=== PATIENT | male | born 1975 | race Caucasian/White ===

== ENCOUNTER 2017-11-21 06:11 | Observation (INO) ==
[2017-11-21] MEDS ORDERED: Chlorhexidine Gluconate 2% 1 Pack (2 Cloths) TOPICAL SCH (06:45)
[2017-11-21] MEDS ORDERED: Metoprolol Tartrate 25 MG Tablet PO SCH (06:45)
[2017-11-21] MEDS ORDERED: Vancomycin Inj 1 GM/200 ML PIGGYBACK IV.SIG ONE (06:53)
[2017-11-21] MEDS ORDERED: Bupivacaine/Epinephrine 0.5% Inj 50 ML Vial ONE (06:53)
[2017-11-21] MEDS ORDERED: Thrombin Topical Soln 5,000 UNIT Vial TOPICAL ONE ×2 (06:53→10:02)
[2017-11-21] MEDS ORDERED: Gelatin Size 100 Topical Foam ONE (06:53)
[2017-11-21] MEDS ORDERED: Vancomycin Inj 1 GM/200 ML PIGGYBACK IV.SIG PRN (06:58)
[2017-11-21] MEDS ORDERED: Propofol Inj 500 MG/50 ML Vial ONE (06:58)
[2017-11-21] MEDS ORDERED: Sodium Chlor 0.9% Inj 500 ML IV.SIG SCH (07:00)
[2017-11-21] MEDS ORDERED: Bisacodyl 10 MG Supp RECTAL PRN (11:49)
[2017-11-21] MEDS ORDERED: Menthol 5.8 MG Lozenge BUCCAL PRN (11:51)
[2017-11-21] MEDS ORDERED: Acetaminophen 325 MG Tablet PO PRN (11:51)
[2017-11-21] MEDS ORDERED: Aluminum/Magnesium/Simethacone Susp 30 ML UDC PO PRN (11:51)
[2017-11-21] MEDS ORDERED: Zolpidem Tartrate 5 MG Tablet PO PRN (11:51)
[2017-11-21] MEDS ORDERED: Dextrose 50% in Water 50 ML Vial IV.PUSH PRN (11:55)
[2017-11-21] MEDS ORDERED: fentaNYL Citrate Inj 100 MCG/2 ML Ampul ONE (12:01)
[2017-11-21] MEDS ORDERED: Phenylephrine/NS 1000 MCG/10ML Syringe IV.PUSH ONE (12:30)
[2017-11-21] MEDS ORDERED: Glycopyrrolate Inj 1 MG/5 ML Syringe IV.PUSH ONE (12:30)
[2017-11-21] MEDS ORDERED: Lidocaine PF 1% Inj 5 ML Syringe INFILTRATN ONE (12:30)
[2017-11-21] MEDS ORDERED: Metoprolol Inj 5 MG/5 ML Vial IV.PUSH ONE (12:30)
[2017-11-21] MEDS ORDERED: Neostigmine Inj 5 MG/5 ML Syringe IV.PUSH ONE (12:30)
[2017-11-21] MEDS ORDERED: *morphine SULFATE 4 MG/ML PERIprocedure ONLY ONE ×2 (12:31→12:59)
[2017-11-21] MEDS: Insulin NovoLIN Regular Correctional Sugar Inj SQ SCH ×2 (13:21→17:05)
[2017-11-21] MEDS: Sod Chloride 0.9% Inj 1,000 ML IV.SIG SCH (14:58)
--- NOTE | 2017-11-21 14:59 | XR ---
EXAM DATE: 11/21/2017 2:42 PM EDT AGE/SEX: 42 years / Male INDICATIONS: Post-op C6-C7 anterior cervical fusion. CLINICAL DATA: This is the patient's initial encounter. Patient reports that signs and symptoms have been present for 1 day and indicates a pain score of Nonresponsive. MEDICAL/SURGICAL HISTORY: Non-responsive. Non-responsive. COMPARISON: No prior exams available for comparison. FINDINGS: Intraoperative examination demonstrates anterior fusion at C6-7 with gross anatomic alignment. CONCLUSION: Intact immediate postsurgical changes. Electronically signed by: Chin Dos Santos MD 11/21/2017 2:58 PM EDT
--- NOTE | 2017-11-21 15:02 | P.OP ---
- Preoperative Diagnosis (1) Herniation of cervical intervertebral disc with radiculopathy (2) Degeneration of cervical intervertebral disc - Postoperative Diagnosis (1) Degeneration of cervical intervertebral disc (2) Herniation of cervical intervertebral disc with radiculopathy Date of procedure: 11/21/17 Procedure: Anterior cervical C6-7 microdiscectomy with interbody fusion; anterior C6-7 cervical plate placement; C6-7 interbody cage placement; microsurgical technique Anesthesia: GETA Surgeon: Jeanmarie Ferris MD Brass Burnisher: Miranda Klein Operation and Findings: Following administration of general endotracheal anesthesia, the patient received a gram of vancomycin and Decadron 10 mg intravenously. Sequential compression devices were placed in supine position on a Eloy table and all pressure points adequately padded. The head secured in a donut and anterior cervical region then shaved and prepped with Chloraprep and sterilely draped with Ioban along with the usual sterile draping. A transverse skin incision on the left side of the neck was then made after infiltrating the skin with 0.5% Marcaine with epinephrine solution extending down through the platysma. At the anterior border of the sternocleidomastoid further dissection was undertaken developing a plane between the carotid sheath laterally and the trachea esophagus medially. The prevertebral fascia was exposed and dissected out. The medial attachments of the longus colli muscles were detached and a self- retaining retractor used for exposure. Patient had very short and broad neck with obese habitus making the exposure challenging. The C6-7 disc space was localized with a marking the disc space and using lateral fluoroscopy. Bishop distraction screws 14 mm length were placed one in the C6 and one in the C7 body interbody distraction and exposure. There was significant disc degeneration with disc height collapse and anterior osteophytes noted at the C6- 7 level and the osteophytes were resected with a Leksell and annulus incised with a 15 blade and further dissection undertaken using microtechnique with microscope magnification. Diskectomy was undertaken with pituitaries and the endplates were also decorticated with curettes and drill bit. And more posteriorly there was disk osteophyte complex compressing the thecal sac along with a significant uncovertebral joint hypertrophy and herniated disc fragment on the left side into the foramen with foraminal stenosis which was decompressed along with removal of the posterior longitudinal ligaments at both levels. The foramen was decompressed bilaterally using a Kerrison's and palpation with a nerve hook, the exiting nerve roots were felt to be free. The area was then copiously irrigated. I then placed a Peek cage packed with local autograft bone at the C6-7 interspace under fluoroscopy guidance. Bishop distraction pins were removed and the holes plugged with Gelfoam for hemostasis. In order to facilitate the fusion and provide stabilization, a solo precision spine cervical plate was then placed with a 16 mm variable angle screw in the C6 body and a 16 mm fixed angle screw in the C7 body. The plate screw locking mechanism was then engaged. AP and lateral fluoroscopy confirmed good placement of the construct and the retractor was then removed. Muscular bleeding points were cauterized with bipolar cautery and Gelfoam was then also used for hemostasis which was removed. The platysma was then approximated using 3-0 Vicryl interrupted stitches and 3-0 Vicryl subcuticular stitch also placed in an interrupted fashion, and final skin closure was with Mastisol and Steri- Strips. Sterile dressing was then applied. The patient was then extubated and taken to the recovery room. There are no intraoperative complications and all sponge and needle counts were correct at the end of procedure. Estimated blood loss was about 50 cc. The patient did undergo intraoperative neurologic monitoring which remained stable throughout the surgery.
[2017-11-21] MEDS: Vancomycin Inj 1,000 MG in Sodium Chlor 0.9% Inj 250 ML IV.SIG SCH (21:17)
[2017-11-21] MEDS: Senna/Docusate Sodium 8.6/50 MG Tablet PO SCH (21:20)
[2017-11-21] MEDS: Morphine Inj 4 MG/ML Vial IV.PUSH PRN (21:52)
[2017-11-22] MEDS: Insulin NovoLIN Regular Correctional Sugar Inj SQ SCH ×2 (02:09→08:30)
[2017-11-22] MEDS: Morphine Inj 4 MG/ML Vial IV.PUSH PRN ×3 (02:24→11:04)
[2017-11-22 07:49] VITALS: RESP 18
[2017-11-22] MEDS: Sod Chloride 0.9% Inj 1,000 ML IV.SIG SCH (08:33)
[2017-11-22] MEDS: Vancomycin Inj 1,000 MG in Sodium Chlor 0.9% Inj 250 ML IV.SIG SCH (08:33)
[2017-11-22] MEDS: Senna/Docusate Sodium 8.6/50 MG Tablet PO SCH (08:35)
[2017-11-22] MEDS ORDERED: Lisinopril 20 MG Tablet PO SCH (09:00)
[2017-11-22] MEDS ORDERED: amLODIPine 5 MG Tablet PO SCH (09:00)
[2017-11-22 09:41] VITALS: BP 134/86; PULSE 102; TEMP 98.3; O2SAT 92
--- NOTE | 2017-11-22 11:42 | P.PNNS ---
Subjective Interval history: Pt states he is feeling much better. No radiculopathy or paresthesias in UEs. He has mild difficulty swallowing but states he was able to eat. he states he is ready to be discharged. <Mitchell Turner - Last Filed: 11/22/17 11:38> Physical Exam Vital signs: Vital Signs 11/21/17 12:00 11/21/17 12:07 11/21/17 12:15 Temperature 98.5 F Pulse Rate 86 91 H 99 H Respiratory Rate 20 16 15 Blood Pressure 114/84 116/63 120/71 Pulse Oximetry 92 L 92 L 93 L 11/21/17 12:30 11/21/17 12:45 11/21/17 13:00 Temperature 98.2 F Pulse Rate 94 H 95 H 95 H Respiratory Rate 14 14 18 Blood Pressure 126/76 135/79 133/83 Pulse Oximetry 94 L 94 L 94 L 11/21/17 16:00 11/21/17 20:20 11/22/17 00:08 Temperature 97.3 F L 98.8 F 98.2 F Pulse Rate 99 H 109 H 91 H Respiratory Rate 18 18 18 Blood Pressure 131/88 131/82 131/78 Pulse Oximetry 93 L 92 L 94 L 11/22/17 03:41 11/22/17 05:32 11/22/17 07:48 Temperature 98.7 F Pulse Rate 89 80 Respiratory Rate 18 3 L 18 Blood Pressure 128/65 Pulse Oximetry 94 L 96 11/22/17 08:00 11/22/17 08:34 Temperature 98.3 F Pulse Rate 102 H Respiratory Rate 18 18 Blood Pressure 134/86 Pulse Oximetry 92 L Intake & Output 11/21/17 11/22/17 11/22/17 18:59 06:59 18:59 Intake Total 1500 / 1500 480 / 480 500 / 500 Output Total 425 / 425 Balance 1075 / 1075 480 / 480 500 / 500 Weight 121 kg Intake: IV 500 / 500 Vancomycin Inj 1,000 MG In NS 500 / 500 Inj 250 ML @ 250 mls/hr IV.SIG Q12H DAVY Rx#:[id number] Oral 480 / 480 Anesthesia Amount 1500 / 1500 Output: Urine 375 / 375 Estimated Blood Loss 50 / 50 Other: # Voids 1 2 # Bowel Movements 0 - Constitutional no acute distress - Routine HEENT Exam Head: Present: normocephalic, atraumatic Eye: Present: PERRL. Absent: conjunctival icterus - Routine Respiratory Exam Present: CTA bilaterally. Absent: rhonchi, wheezes - Routine Cardiovascular Exam Present: RRR, S1, S2. Absent: murmur - Routine Abdominal Exam Present: soft, normoactive bowel sounds. Absent: distended - Routine Skin Exam Present: scars (Anterior cervical incision clean and dry without signs of infection. new bandage placed.). Absent: cyanosis, erythema - Routine Neurological Exam Present: alert, oriented X3, normal speech. Absent: sensory deficit, motor deficit, altered mental status - Routine Psychiatric Exam Present: normal affect <Mitchell Turner - Last Filed: 11/22/17 11:38> Vital signs: Vital Signs 11/21/17 16:00 11/21/17 20:20 11/22/17 00:08 Temperature 97.3 F L 98.8 F 98.2 F Pulse Rate 99 H 109 H 91 H Respiratory Rate 18 18 18 Blood Pressure 131/88 131/82 131/78 Pulse Oximetry 93 L 92 L 94 L 11/22/17 03:41 11/22/17 05:32 11/22/17 07:48 Temperature 98.7 F Pulse Rate 89 80 Respiratory Rate 18 3 L 18 Blood Pressure 128/65 Pulse Oximetry 94 L 96 11/22/17 08:00 11/22/17 08:34 Temperature 98.3 F Pulse Rate 102 H Respiratory Rate 18 18 Blood Pressure 134/86 Pulse Oximetry 92 L Intake & Output 11/21/17 11/22/17 11/22/17 18:59 06:59 18:59 Intake Total 1500 / 1500 480 / 480 500 / 500 Output Total 425 / 425 Balance 1075 / 1075 480 / 480 500 / 500 Weight 121 kg Intake: IV 500 / 500 Vancomycin Inj 1,000 MG In NS 500 / 500 Inj 250 ML @ 250 mls/hr IV.SIG Q12H DAVY Rx#:[id number] Oral 480 / 480 Anesthesia Amount 1500 / 1500 Output: Urine 375 / 375 Estimated Blood Loss 50 / 50 Other: # Voids 1 2 # Bowel Movements 0 <Jeanmarie Ferris - Last Filed: 11/22/17 13:31> Assessment and Plan - Plan Discussed restrictions with pt in detail Discharge pt home Follow up in 6 weeks with AP and Lateral cervical x-rays prior to visit <Mitchell Turner - Last Filed: 11/22/17 11:38> - Attending Attestation The exam, history, and the medical decision-making described in the above note were completed with the assistance of the mid-level provider. I reviewed and agree with the findings presented. I attest that I had a [id number] encounter with the patient on the same day, and personally performed and documented my assessment and findings in the medical record. <Jeanmarie Ferris - Last Filed: 11/22/17 13:31>
== END 2017-11-22 12:31 | disposition home or self-care (01) ==
LOC: HSDI 06:11 → N06 06:11 → HOR 06:11 → N06 14:09
PROVIDERS: ADMIT Neurological Surgery; ATTEND Neurological Surgery